=== PATIENT | female | born 1995 | race Caucasian/White ===

== ENCOUNTER 2019-01-22 12:54 | Emergency (ER) | payer OTHER ==
[2019-01-22 12:59] VITALS: BP 115/61
--- NOTE | 2019-01-22 13:21 | ER Document Report ---
ED Medical Screen (RME) - General Chief Complaint: Abscess Stated Complaint: ABSCESS Time Seen by Provider: 01/22/19 13:20 Mode of Arrival: Ambulatory Information source: Patient Notes: 22-year-old female presented to ED for painful swollen area to the left labia. She states the pain started 2 days ago the swelling started today. Patient denies any medical or surgical history. She states she does smoke cigarettes and is awake as well as with her family. Patient is alert and oriented respirations regular and unlabored speaking in full sentences walks with even steady gait. I have greeted and performed a rapid initial assessment of this patient. A comprehensive ED assessment and evaluation of the patient, analysis of test results and completion of medical decision making process will be conducted by an additional ED providers. Dictation of this chart was performed using voice recognition software; therefore, there may be some unintended grammatical errors. TRAVEL OUTSIDE OF THE [place] IN LAST 30 DAYS: No - Related Data Allergies/Adverse Reactions: No Known Allergies Allergy (Verified 01/22/19 12:55) Physical Exam - Vital signs Vitals: Temp Pulse Resp BP Pulse Ox 99.2 F 97 16 115/61 100 01/22/19 12:58 01/22/19 12:58 01/22/19 12:58 01/22/19 12:58 01/22/19 12:58 Course - Vital Signs Vital signs: Temp Pulse Resp BP Pulse Ox 99.2 F 97 16 115/61 100 01/22/19 12:58 01/22/19 12:58 01/22/19 12:58 01/22/19 12:58 01/22/19 12:58
[2019-01-22 13:56] LABS: APPEARANCE,URINE SLIGHTLY-CLOUDY; BILIRUBIN,URINE NEGATIVE (NEGATIVE); COLOR,URINE YELLOW; GLUCOSE, URINE NEGATIVE (NEGATIVE); KETONES,URINE NEGATIVE (NEGATIVE); LEUKOCYTE ESTERASE,URINE TRACE (NEGATIVE); NITRITE,URINE NEGATIVE (NEGATIVE); PROTEIN,URINE NEGATIVE (NEGATIVE); URINE SPECIFIC GRAVITY 1.019; UROBILINOGEN,URINE NEGATIVE mg/dL (<2.0)
== END 2019-01-22 14:39 | disposition left against medical advice (07) ==
LOC: ER 12:54
DX: N76.4 Abscess of vulva (principal); F17.210 Nicotine dependence, cigarettes, uncomplicated
CPT/HCPCS: 81001; 81025; 99281